=== PATIENT | male | born 1990 | race African-American/Black ===

== ENCOUNTER 2022-06-13 09:08 | Emergency (ER) | payer MEDICAID ==
[~2022-06-13] VITALS: Ht 188 cm; Wt 100.0 kg
[2022-06-13 09:12] VITALS: BP 140/107
[2022-06-13] MEDS ORDERED: OLAN5TAB3 MT (09:37)
[2022-06-13] MEDS ORDERED: QUET100T MT (09:37)
[2022-06-13] MEDS ORDERED: IBUP-2028 MT (09:37)
[2022-06-13] MEDS ORDERED: IBUPROFEN 400MG TABLET PO ONE (10:00)
== END 2022-06-13 10:07 | disposition home or self-care (01) ==
LOC: ER 09:29 → EDBD 09:29 → ER 10:07
DX: M79.662 Pain in left lower leg (principal); M79.661 Pain in right lower leg; Z76.0 Encounter for issue of repeat prescription; F20.9 Schizophrenia, unspecified; I10 Essential (primary) hypertension; F43.10 Post-traumatic stress disorder, unspecified; Z87.828 Personal history of other (healed) physical injury and trauma; Z88.0 Allergy status to penicillin
CPT/HCPCS: 99283

== ENCOUNTER 2024-12-05 09:14 | Emergency (ER) | payer MEDICAID ==
[~2024-12-05] VITALS: Ht 190.5 cm; Wt 155.0 kg
[~2024-12-05 09:14] MED LIST: IBUP-2028 MT; OLAN5TAB3 MT; QUET100T MT
[2024-12-05 09:16] VITALS: O2SAT 99
[2024-12-05] MEDS: KETOROLAC 30MG/ML VIAL IM ONE (09:37)
[2024-12-05] MEDS ORDERED: IBUP-2029 MT (10:11)
[2024-12-05] MEDS ORDERED: CYCL10TA21 MT (10:11)
[2024-12-05 10:45] VITALS: BP 160/100; PULSE 80; RESP 18; TEMP 37.1; O2SAT 99
== END 2024-12-05 10:47 | disposition home or self-care (01) ==
LOC: ER 09:14
DX: M54.31 Sciatica, right side (principal); M79.18 Myalgia, other site; I10 Essential (primary) hypertension; F20.9 Schizophrenia, unspecified; Z79.899 Other long term (current) drug therapy; Z88.0 Allergy status to penicillin
CPT/HCPCS: 99283; 96372; J1885